=== PATIENT | male | born 1995 | race American Indian/Alaskan Native ===

== ENCOUNTER 2020-01-20 14:26 | Emergency (ER) | payer MEDICAID ==
[2020-01-20 14:46] VITALS: BP 108/64
[2020-01-20] MEDS ORDERED: TETANUS,DIPHTHERIA TOXOID ADULT 0.5 ML INJ IM ONE (15:14)
[2020-01-20] MEDS ORDERED: LIDOCAINE (2%) 20 MG/1 ML VIAL 20 ML MDV INFILTRATI ONE (15:14)
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
== END 2020-01-20 15:23 | disposition left against medical advice (07) ==
LOC: ED 14:26
DX: S51.012A Laceration without foreign body of left elbow, initial encounter (principal); Y04.0XXA Assault by unarmed brawl or fight, initial encounter; Y93.89 Activity, other specified; Y92.89 Other specified places as the place of occurrence of the external cause; Y99.8 Other external cause status
CPT/HCPCS: 90714; 99281